=== PATIENT | female | born 1940 | race Caucasian/White ===

== ENCOUNTER → 2019-07-03 | Day surgery (SDC) | payer MEDICARE ==
[~2019-07-03] VITALS: Ht 152.4 cm; Wt 50.0 kg
[~2019-07-03] MED LIST: ACET325T14 PO; BACL-19 PO; CIPR500T3 PO; KADCYLA IV; LEVO125T PO; METH500T7 PO; STEROID PO; TRAM50TA2 PO
[2019-07-03 11:58] LABS: MICROSCOPIC INDICATED
[2019-07-03 12:17] LABS: MEAN CORPUSCULAR HEMOGLOBIN 29.9 pg (27.0-34.8); MEAN CORPUSCULAR HGB CONC 32.5 g/dL (32.4-35.8); MEAN PLATELET VOLUME 7.6 fL (7.4-10.4); PLATELET COUNT 244 x10^3/uL (130-400); RED BLOOD COUNT 4.12 x10^6/uL (3.82-5.3)
[2019-07-03 12:24] LABS: ALANINE AMINOTRANSFERASE 28 U/L (12-78); ALBUMIN 3.4 g/dL (3.4-5.0); ANION GAP 7 mmol/L (5-15); CALCIUM 9.6 mg/dL (8.5-10.1); CHLORIDE 111 mmol/L (98-107); CREATININE 0.65 mg/dL (0.55-1.02)
[2019-07-03 12:27] LABS: ALKALINE PHOSPHATASE 165 U/L (45-117); BILIRUBIN,TOTAL 1.1 mg/dL (0.2-1.0); TOTAL PROTEIN 8.5 g/dL (6.4-8.2)
[2019-07-03 12:38] LABS: INTERNATIONAL NORMALIZED RATIO 1.18 (0.93-1.1); PROTHROMBIN TIME 12.5 Seconds (9.6-11.5)
[2019-07-03 12:44] LABS: BASOPHILS % (AUTO) 0 % (0-1); EOSINOPHILS % (AUTO) 0 % (1-7); LYMPHOCYTES # (AUTO) 0.99 x10^3/uL (1-3.4); LYMPHOCYTES % (AUTO) 7 % (22-44); MD SCAN; MONOCYTES # (AUTO) 0.77 x10^3/uL (0.2-0.8); MONOCYTES % (AUTO) 5 % (2-9); NEUTROPHILS # (AUTO) 13.05 x10^3/uL (1.8-6.8); NEUTROPHILS % (AUTO) 88 % (42-75)
[2019-07-03 12:50] LABS: HCT (SEDRATE) 37.9 % (34.6-47.8)
[2019-07-03 13:16] LABS: CULTURE INDICATED? YES
[2019-07-06 11:02] LABS: MICROSCOPIC INDICATED
== END | disposition home or self-care (01) ==
LOC: OR 10:25
PROVIDERS: ATTEND Orthopaedic Surgery Orthopaedic Surgery of the Spine
DX: M80.08XA Age-related osteoporosis with current pathological fracture, vertebra(e), initial encounter for fracture (principal); Z79.01 Long term (current) use of anticoagulants
CPT/HCPCS: 36415; 71046; 72072; 80053; 80074; 81001; 85025; 85610; 85651; 85730; 87086; 87806; 93005; G0475

== ENCOUNTER 2019-07-17 13:45 | Day surgery (SDC) | payer MEDICARE ==
[~2019-07-17] VITALS: Ht 152.4 cm; Wt 54.2 kg
[2019-07-17] MEDS ORDERED: LACTATED RINGERS 1,000 ML IV SCH (14:15)
[2019-07-17] MEDS ORDERED: CHLORHEXIDINE 15 ML UDC ONE (14:18)
[2019-07-17] MEDS ORDERED: CHLORHEXIDINE 15 ML UDC MM ONE (14:30)
[2019-07-17] MEDS ORDERED: MIDAZOLAM 1 MG/ML, 2ML ONE (15:29)
[2019-07-17] MEDS ORDERED: FENTANYL PF 250 MCG/5ML ONE (15:29)
[2019-07-17] MEDS ORDERED: DEXAMETHASONE 4 MG/ML, 1ML ONE (15:32)
[2019-07-17] MEDS ORDERED: ROCURONIUM 10 MG/ML,10ML ONE (15:42)
[2019-07-17] MEDS ORDERED: PROPOFOL 10 MG/ML, 20ML ONE (15:42)
[2019-07-17] MEDS ORDERED: ONDANSETRON 2MG/ML, 2ML ONE (15:42)
[2019-07-17] MEDS ORDERED: SUCCINYLCHOLINE 20 MG/ML, 10ML ONE (15:42)
[2019-07-17] MEDS ORDERED: CEFAZOLIN 1,000 MG ONE (15:42)
[2019-07-17] MEDS ORDERED: PHENYLEPHRINE 10 MG/ML ONE (15:42)
[2019-07-17] MEDS ORDERED: BUPIVACAINE/PF-EPI 0.5% 1:200K INFIL ONE (16:16)
[2019-07-17] MEDS ORDERED: OMNIPAQUE 180 MG/ML, 20ML VIAL IT ONE (16:16)
[2019-07-17] MEDS ORDERED: FENTANYL PF 100 MCG/2ML IV PRN (18:00)
[2019-07-17] MEDS ORDERED: MEPERIDINE/PF 25MG/ML,1ML IVPush PRN (18:00)
[2019-07-17] MEDS ORDERED: HYDROmorphone 1 MG/ML, 1ML INJ IVPush PRN (18:00)
[2019-07-17] MEDS ORDERED: DIAZEPAM 5 MG/ML, 2ML IVPush PRN (18:00)
[2019-07-17] MEDS ORDERED: OXYcodone 5 MG/5 ML ORAL.SOL UDC PO PRN (18:00)
[2019-07-17] MEDS ORDERED: MIDAZOLAM 1 MG/ML, 2ML IV PRN (18:00)
[2019-07-17] MEDS ORDERED: ONDANSETRON 2MG/ML, 2ML IV PRN ×2 (18:00→19:00)
[2019-07-17] MEDS ORDERED: PROMETHAZINE 25 MG/ML, 1ML IV PRN (18:00)
[2019-07-17] MEDS ORDERED: ALBUTEROL SULFATE 2.5 MG/3 ML NPPB PRN (18:00)
[2019-07-17] MEDS ORDERED: HALOPERIDOL 5 MG/ML IV PRN (18:00)
[2019-07-17] MEDS ORDERED: PROMETHAZINE 12.5 MG SUPP PR PRN (18:00)
[2019-07-17] MEDS ORDERED: LABETALOL 5MG/ML, 20ML IV PRN (18:00)
[2019-07-17] MEDS ORDERED: EPHEDRINE 50 MG/ML, 1ML IVPush PRN (18:00)
[2019-07-17] MEDS ORDERED: ONDANSETRON ODT 8 MG PO PRN (18:00)
[2019-07-17] MEDS ORDERED: hydrALAzine 20 MG/ML, 1ML IV PRN (18:00)
[2019-07-17] MEDS ORDERED: OXYcodone 5 MG/5 ML ORAL.SOL UDC ONE (18:08)
[2019-07-17 18:55] VITALS: BP 137/70
[2019-07-17] MEDS ORDERED: D5%-0.45% NACL+KCL 10MEQ 1,000 ML IV SCH (19:00)
[2019-07-17] MEDS: CEFAZOLIN PMX 1GM/50ML 50 ML IV SCH (23:44)
[2019-07-17 23:58] VITALS: BP 117/82
[2019-07-18 03:27] VITALS: BP 101/60
[2019-07-18] MEDS: CEFAZOLIN PMX 1GM/50ML 50 ML IV SCH (05:52)
[2019-07-18 07:45] VITALS: BP 100/57
== END 2019-07-18 09:55 | disposition home or self-care (01) ==
LOC: OR 13:45 → 4NE 18:40 → OR 22:31 → 4NE 22:31
PROVIDERS: ADMIT Orthopaedic Surgery Orthopaedic Surgery of the Spine; ATTEND Orthopaedic Surgery Orthopaedic Surgery of the Spine
DX: M48.54XA Collapsed vertebra, not elsewhere classified, thoracic region, initial encounter for fracture (principal); E03.9 Hypothyroidism, unspecified; K58.9 Irritable bowel syndrome, unspecified; M81.0 Age-related osteoporosis without current pathological fracture; Z03.818 Encounter for observation for suspected exposure to other biological agents ruled out; Z79.890 Hormone replacement therapy; Z87.891 Personal history of nicotine dependence; Z79.899 Other long term (current) drug therapy; Z88.6 Allergy status to analgesic agent; Z85.3 Personal history of malignant neoplasm of breast
CPT/HCPCS: 22513; 72072; 88307; 88311; 88342; 96365; C1713; C1886; G0378; J0330; J0690; J1100; J2250; J2370; J2405; J2704; J3010; J7120; Q9965; U0001